=== PATIENT | male | born 1940 | race Caucasian/White ===

== ENCOUNTER 2018-05-24 12:44 | Outpatient (CLI) | payer MEDICARE ==
--- NOTE | 2018-05-24 13:56 | CT Report ---
Procedure Date: 05/24/2018 Accession Number: [id number] / [id number] Procedure: CT - Head W/O CPT Code: FULL RESULT: EXAM: CT HEAD EXAM DATE: 05/24/2018 01:06 PM. CLINICAL HISTORY: Headache and sinus pain. COMPARISON: MRI brain 06/09/2016. TECHNIQUE: Multiaxial CT images were obtained from the foramen magnum to the vertex. Reformats: Coronal. IV contrast: None. In accordance with CT protocol optimization, one or more of the following dose reduction techniques were utilized for this exam: automated exposure control, adjustment of mA and/or KV based on patient size, or use of iterative reconstructive technique. FINDINGS: Parenchyma: Mild cerebral atrophy without intracranial bleed or mass effect. Small amount of low density in the deep white matter. Extraaxial Spaces: Mild cerebral atrophy. No subdural or epidural collections identified. Ventricles: Normal in size and position. Sinuses and Orbits: Imaged paranasal sinuses, orbits, and mastoids show no significant abnormality. Bones: No evidence of fracture or calvarial defect. Other: Mild calcifications bilateral temporal soft tissues. IMPRESSION: 1. No intracranial bleed or mass effect. 2. Mild cerebral atrophy with small nonspecific low-density in the deep white matter, likely microangiopathy. RADIA
== END 2018-05-24 12:45 | disposition home or self-care (01) ==
LOC: DI 12:44
PROVIDERS: ATTEND Physician Assistant
DX: R51 Headache (principal)
CPT/HCPCS: 70450

== ENCOUNTER 2018-09-13 12:53 | Outpatient (CLI) | payer MEDICARE ==
--- NOTE | 2018-09-15 08:39 | Ultrasound Report ---
Reason: CAROTID STENOSIS Procedure Date: 09/13/2018 Accession Number: [id number] / [id number] Procedure: US - Carotid Doppler Complete CPT Code: FULL RESULT: EXAM: BILATERAL CAROTID AND VERTEBRAL ARTERY DUPLEX DOPPLER ULTRASOUND: EXAM DATE: 09/13/2018 01:41 PM CLINICAL HISTORY: CAROTID STENOSIS. COMPARISON: Carotid ultrasound 09/07/2017. TECHNIQUE: Grayscale imaging, color Doppler, and duplex spectral Doppler were used to evaluate the carotid and vertebral arteries bilaterally. Static images were obtained. FINDINGS: There are atherosclerotic plaques of the common carotid arteries and carotid bulbs. There are atherosclerotic plaques of the left internal carotid artery. VELOCITIES (cm/sec): Right CCA Mid 69 Distal 36 Right ICA Occluded Right ECA 78 Right vertebral 46 antegrade Left CCA Mid 89 Distal 80 Left ICA Proximal 83 Mid 80 Distal 82 Left ECA 62 Left vertebral 46 ICA/CCA 0.93 IMPRESSION: 1. There is complete occlusion of the right ICA, a stable finding. 2. There are otherwise mild calcified plaques of the common carotid arteries and carotid bulbs. 3. No increased velocities in the patent vessels. 4. Normal antegrade flow is present in the vertebral arteries. General Recommendations: Stenosis =50% ICA - Follow-up ultrasound 6-12 months Stenosis <50% ICA - High Risk Patient with plaque - Follow-up ultrasound 1-2 years Normal Study but High Risk Patient - Follow-up ultrasound 3-5 years Management recommendations and diagnostic criteria are based on current IAC endorsed standards in Carotid Artery Stenosis: Grayscale and Doppler Ultrasound Diagnosis. Validated velocity measurements with angiographic measurements and velocity criteria are extrapolated from diameter data as defined by the Society of Radiologists in Ultrasound Consensus Conference Radiology 2003; 229;340-346. RADIA
== END 2018-09-13 12:54 | disposition home or self-care (01) ==
LOC: DI 12:53
PROVIDERS: ATTEND Physician Assistant
DX: I65.21 Occlusion and stenosis of right carotid artery (principal)
CPT/HCPCS: 93880

== ENCOUNTER 2019-08-22 14:21 | Outpatient (CLI) | payer MEDICARE ==
--- NOTE | 2019-08-25 09:37 | Ultrasound Report ---
Reason: CAROTID ARTERY STENOSIS Procedure Date: 08/22/2019 Accession Number: [id number] / [id number] Procedure: US - Carotid Doppler Complete CPT Code: FULL RESULT: EXAM: BILATERAL CAROTID AND VERTEBRAL ARTERY DUPLEX DOPPLER ULTRASOUND: EXAM DATE: 08/22/2019 01:40 PM CLINICAL HISTORY: Carotid artery stenosis. COMPARISON: CAROTID DOPPLER COMPLETE 09/13/2018 12:59 PM. TECHNIQUE: Grayscale imaging, color Doppler, and duplex spectral Doppler were used to evaluate the carotid and vertebral arteries bilaterally. Static images were obtained. FINDINGS: Occluded right internal carotid artery is unchanged from the prior study. Mild atheromatous plaques are noted in the left carotid bulb, common carotid artery and extending into the internal and external carotid arteries. No hemodynamically significant stenosis is noted in the left internal carotid artery. Normal antegrade flow is present in bilateral vertebral arteries. VELOCITIES (cm/sec): Right CCA mid: PSV 68.90 cm/sec CCA dist: PSV 36.13 cm/sec ICA prox: Occluded ICA mid: Occluded ICA dist: Occluded ECA: PSV 78.43 cm/sec Vert: PSV 45.75 cm/sec ICA/CCA: N/A Left CCA mid: PSV 89.06 cm/sec CCA dist: PSV 79.54 cm/sec ICA prox: PSV 82.66 cm/sec, EDV 27.73 cm/sec ICA mid: PSV 79.94 cm/sec, EDV 26.37 cm/sec ICA dist: PSV 82.45 cm/sec, EDV 29.30 cm/sec ECA: PSV 61.66 cm/sec Vert: PSV 46.28 cm/sec ICA/CCA: 0.93 ICA diameter stenosis: Right: Occluded. Left: <50% by velocity and <70% by NASCET criteria. IMPRESSION: 1. Occluded right internal carotid artery. Mild left carotid artery plaquing. 2. Stable occluded right internal carotid artery. 3. In the left carotid artery there are no elevated carotid artery velocities to suggest hemodynamically significant stenosis. 4. Normal antegrade flow is present in bilateral vertebral arteries. General Recommendations: Stenosis =50% ICA - Follow-up ultrasound 6-12 months Stenosis <50% ICA - High Risk Patient with plaque - Follow-up ultrasound 1-2 years Normal Study but High Risk Patient - Follow-up ultrasound 3-5 years Management recommendations and diagnostic criteria are based on current IAC endorsed standards in Carotid Artery Stenosis: Grayscale and Doppler Ultrasound Diagnosis. Validated velocity measurements with angiographic measurements and velocity criteria are extrapolated from diameter data as defined by the Society of Radiologists in Ultrasound Consensus Conference Radiology 2003; 229;340-346. RADIA
== END 2019-08-22 14:22 | disposition home or self-care (01) ==
LOC: DI 14:21
PROVIDERS: ATTEND Physician Assistant
DX: I65.23 Occlusion and stenosis of bilateral carotid arteries (principal)
CPT/HCPCS: 93880

== ENCOUNTER 2020-09-03 14:26 | Outpatient (CLI) | payer MEDICARE ==
--- NOTE | 2020-09-03 18:41 | Ultrasound Report ---
PROCEDURE: Carotid Doppler Complete INDICATIONS: RT CAROTID ARTERY STENOSIS TECHNIQUE: Color and pulse Doppler interrogation was performed of both carotid systems, with image documentation and velocity measurements. COMPARISON: 08/22/2019, 09/13/2018, 08/30/2017 FINDINGS: Right side: Brachial blood pressure: Not measured Common carotid artery peak systolic velocity: 52 cm/sec. Internal carotid artery peak systolic velocity: Occluded Internal carotid artery end diastolic velocity: Occluded External carotid artery peak systolic velocity: 96 cm/sec. ICA/CCA peak systolic ratio: Not applicable Fam scale imaging description: There is an occluded right internal carotid artery Percent internal carotid artery stenosis: 100% Vertebral artery: Flow direction is antegrade. Left side: Brachial blood pressure: Not measured Common carotid artery peak systolic velocity: 97 cm/sec. Internal carotid artery peak systolic velocity: 100 cm/sec. Internal carotid artery end diastolic velocity: 36 cm/sec. External carotid artery peak systolic velocity: 77 cm/sec. ICA/CCA peak systolic ratio: 0.9 Fam scale imaging description: Moderate atherosclerotic changes are seen. Percent internal carotid artery stenosis: Less than 50% by velocity criteria. Vertebral artery: Flow direction is antegrade. IMPRESSION: Study similar to prior, with a complete occlusion of the right internal carotid artery. There is less than 50% stenosis of the left proximal internal carotid artery, by velocity criteria. The estimate of stenosis included in the report of the imaging study was calculated using the NASCET method Reviewed by: Jonathan Patrick MD on 09/03/2020 5:40 PM AKJO Approved by: Jonathan Patrick MD on 09/03/2020 5:40 PM AKDT Station ID: [id number]
== END 2020-09-03 14:27 | disposition home or self-care (01) ==
LOC: DI 14:26
PROVIDERS: ATTEND Physician Assistant
DX: I65.21 Occlusion and stenosis of right carotid artery (principal)
CPT/HCPCS: 93880

== ENCOUNTER 2021-03-30 14:31 | Outpatient (CLI) | payer MEDICARE ==
--- NOTE | 2021-03-30 15:34 | XRAY Report ---
PROCEDURE: Shoulder 3 View RT INDICATIONS: PAIN RIGHT SHOULD TECHNIQUE: 3 views of the shoulder were acquired. COMPARISON: None. FINDINGS: Bones: No fractures or dislocations. Moderate to severe osteoarthritic changes in acromioclavicular joint and glenohumeral joint are seen with joint space narrowing, extensive subchondral sclerosis and prominent marginal osteophyte formation. No suspicious bony lesions. Visualized ribs appear intact. Soft tissues: Moderate joint effusion is noted. Amorphous calcifications are noted adjacent to greate r tuberosity of humeral head and likely represent calcific tendinitis. IMPRESSION: 1. 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 No fracture or dislocation. 2. Moderate joint effusion and suggestion of calcific tendinitis. Reviewed by: Paddy Noyola MD on 03/30/2021 3:33 PM PDT Approved by: Paddy Noyola MD on 03/30/2021 3:33 PM PDT Station ID: [id number]
== END 2021-03-30 14:32 | disposition home or self-care (01) ==
LOC: DI.S 14:31
PROVIDERS: ATTEND Family Medicine
DX: M19.011 Primary osteoarthritis, right shoulder (principal); M25.411 Effusion, right shoulder

== ENCOUNTER 2021-09-02 14:15 | Outpatient (CLI) | payer MEDICARE ==
--- NOTE | 2021-09-02 15:01 | Ultrasound Report ---
PROCEDURE: Carotid Doppler Complete INDICATIONS: CAROTID ARTERY STENOSIS TECHNIQUE: Color and pulse Doppler interrogation was performed of both carotid systems, with image documentation and velocity measurements. COMPARISON: 09/03/2020, 08/22/2019 and 09/13/2018. FINDINGS: Right side: Brachial blood pressure: 216/89 mm Hg. Common carotid artery peak systolic velocity: 51.3 cm/sec. Internal carotid artery peak systolic velocity: Occluded Internal carotid artery end diastolic velocity: Occluded External carotid artery peak systolic velocity: 90.2 cm/sec. ICA/CCA peak systolic ratio: Not applicable . Fam scale imaging description: There is complete occlusion of right internal carotid artery from it s origin. Percent internal carotid artery stenosis: Not applicable . Vertebral artery: Flow direction is antegrade. Left side: Brachial blood pressure: 208/89 mm Hg. Common carotid artery peak systolic velocity: 96.8 cm/sec. Internal carotid artery peak systolic velocity: 99 cm/sec. Internal carotid artery end diastolic velocity: 30.4 cm/sec. External carotid artery peak systolic velocity: 82.8 cm/sec. ICA/CCA peak systolic ratio: 1.0 . Fam scale imaging description: Mild atherosclerotic plaques are noted in distal left common carotid artery. Percent internal carotid artery stenosis: Less than 50% . Vertebral artery: Flow direction is antegrade. IMPRESSION: 1. 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 2. Less than 50% stenosis of left proximal internal carotid artery not significantly changed from paula or study. The estimate of stenosis included in the report of the imaging study was calculated using the NASCET method Reviewed by: Paddy Noyola MD on 09/02/2021 2:59 PM PDT Approved by: Paddy Noyola MD on 09/02/2021 2:59 PM PDT Station ID: [id number]
== END 2021-09-02 14:16 | disposition home or self-care (01) ==
LOC: DI 14:15
PROVIDERS: ATTEND Family Medicine
DX: I65.23 Occlusion and stenosis of bilateral carotid arteries (principal)
CPT/HCPCS: 93880

== ENCOUNTER 2022-04-27 10:29 | Outpatient (CLI) | payer MEDICARE ==
[2022-04-27 11:22] LABS: ALBUMIN 3.9 g/dL (3.2-5.5); BILIRUBIN,TOTAL 0.2 mg/dL (0.2-1.0); CALCIUM 9.5 mg/dL (8.5-10.3); CREATININE 1.1 mg/dL (0.6-1.2); POTASSIUM 4.6 mmol/L (3.5-5.0); TOTAL PROTEIN 7.9 g/dL (6.7-8.2)
== END 2022-04-27 10:30 | disposition home or self-care (01) ==
LOC: LAB 10:29
PROVIDERS: ATTEND Nurse Practitioner Family
DX: D64.9 Anemia, unspecified (principal); R94.4 Abnormal results of kidney function studies
CPT/HCPCS: 36415; 80053; 82607; 82746; 83540; 84466

== ENCOUNTER 2022-05-05 13:20 | Outpatient (CLI) | payer MEDICARE ==
--- NOTE | 2022-05-05 21:44 | CT Report ---
PROCEDURE: CHEST WO INDICATIONS: DYSPNEA ON EXERTION TECHNIQUE: Noncontrast 1mm axial images were acquired from the pulmonary apices to the posterior costophrenic an gles. Axial 5 mm soft tissue kernel reconstructions were performed as well as 8 mm axial MIP and cor onal and sagittal 5 mm reformations. For radiation dose reduction, the following was used: automate d exposure control, adjustment of mA and/or kV according to patient size. COMPARISON: Chest plain film 04/23/2013. Also two-view chest 04/13/2022. FINDINGS: Image quality: Excellent. Lungs and pleura: No definite acute air space opacities. There is an ovoid area of pleural thickeni ng at the posterior right mid lung, and also what appears to be a soft tissue mass within the right p recardiac fatty soft tissues of the anterior mediastinum. This mass anteriorly measures up to 3.6 x 2 .4 cm, and the area of abnormality of at the pleural surface is of similar size, measuring up to 4.9 x 3.1 cm. More inferiorly there is what appears to be chronic pleural fluid, measuring up to 3.0 cm c rescentic in morphology along the posterior deep costophrenic sulcus on the right. No pleural effusio ns on the left or pneumothorax bilaterally. Central and peripheral airways are patent and normal in caliber. Mediastinum: Heart size is normal. No pericardial effusion. No mediastinal adenopathy by size crit eria. Thoracic aorta and central pulmonary arteries are normal in size. Esophagus is normal in sam velia. No hiatal hernia. Bones and chest wall: No suspicious bony lesions. No vertebral body compression fractures. No axil carlos manuel or supraclavicular adenopathy by size criteria. The thyroid is normal in size and there are no incidental findings. Abdomen: Visualized upper abdominal solid organs and bowel loops appear normal in the absence of con trast except for a densely calcified 8 mm gallstone layering dependently within the gallbladder lumen .. IMPRESSION: Anterior mediastinal mass, exudative posterior right pleural effusion which could be inflammatory or neoplastic in origin. PET/CT scanning likely is warranted for more accurate assessment. Thoracic surg ical consultation also likely is warranted in the near term. Incidental note is made of a densely luis cified gallstone within the gallbladder lumen, without evidence of biliary obstruction or acute melanie cystitis. CLINICAL RECOMMENDATION STATEMENTS: In patients <35 years with an ITN detected on CT, MRI, or extrathyroidal ultrasound, the Committee re commends further evaluation with dedicated thyroid ultrasound if the nodule is "e1 cm and has no susp icious imaging features, and if the patient has normal life expectancy. In patients "e35 years with an ITN detected on CT, MRI, or extrathyroidal ultrasound, the Committee r ecommends further evaluation with dedicated thyroid ultrasound if the nodule is "e1.5 cm and has no s uspicious imaging features, and if the patient has normal life expectancy. (ACR, 2014) Reviewed by: Terrance Anand MD on 05/05/2022 9:43 PM PDT Approved by: Terrance Anand MD on 05/05/2022 9:43 PM PDT Station ID: [id number]
== END 2022-05-05 13:21 | disposition home or self-care (01) ==
LOC: DI 13:20
PROVIDERS: ATTEND Nurse Practitioner Family
DX: R91.8 Other nonspecific abnormal finding of lung field (principal); J90 Pleural effusion, not elsewhere classified

== ENCOUNTER 2022-08-28 12:27 | Outpatient (CLI) | payer MEDICARE ==
--- NOTE | 2022-08-28 16:09 | Ultrasound Report ---
PROCEDURE: Carotid Doppler Complete INDICATIONS: CAROTID ARTERY STENOSIS TECHNIQUE: Color and pulse Doppler interrogation was performed of both carotid systems, with image documentation and velocity measurements. COMPARISON: None. FINDINGS: Right side: Common carotid artery peak systolic velocity: 27.6 cm/sec. Internal carotid artery peak systolic velocity: Occluded cm/sec. Internal carotid artery end diastolic velocity: Occluded cm/sec. External carotid artery peak systolic velocity: 80.7 cm/sec. ICA/CCA peak systolic ratio: Applicable . Fam scale imaging description: Occluded ICA Percent internal carotid artery stenosis: Occlusion . Vertebral artery: Flow direction is antegrade. Left side: Common carotid artery peak systolic velocity: 86 cm/sec. Internal carotid artery peak systolic velocity: 95 cm/sec. Internal carotid artery end diastolic velocity: 37 cm/sec. External carotid artery peak systolic velocity: 84 cm/sec. ICA/CCA peak systolic ratio: 0.9 . Fam scale imaging description: Mild sclerotic plaque Percent internal carotid artery stenosis: Less than 50 . Vertebral artery: Flow direction is antegrade. IMPRESSION: Right ICA occlusion Stable less than 50% left proximal ICA stenosis The estimate of stenosis included in the report of the imaging study was calculated using the NASCET method Reviewed by: Ran Wright MD on 08/28/2022 3:07 PM JERRY Approved by: Ran Wright MD on 08/28/2022 3:07 PM JERRY Station ID: [id number]
== END 2022-08-28 12:28 | disposition home or self-care (01) ==
LOC: DI 12:27
PROVIDERS: ATTEND Nurse Practitioner Family
DX: I65.23 Occlusion and stenosis of bilateral carotid arteries (principal)
CPT/HCPCS: 93880